=== PATIENT | female | born 1965 | race Caucasian/White ===

== ENCOUNTER 2018-05-01 10:41 | Observation (INO) ==
--- NOTE | 2018-05-01 11:27 | ED ---
HPI General Chief Complaint: Extremity Injury, Lower Stated Complaint: Blood Clot Time Seen by Provider: 05/01/18 10:58 Source: patient Mode of arrival: ambulatory Limitations: no limitations History of Present Illness HPI Narrative: 53-year-old female with a history of chronic neck pain presents to the emergency department for evaluation of left lower extremity pain and shortness of breath associated with exertion that started approximately 1 week ago. Patient went to her neurologist, Dr. Nieves, today who recommended she come in for evaluation. Patient says she woke up with this pain approximately 1 week ago that was worse with ambulation. Her pain is mild to moderate, aching, and constant. She has used ice and motrin without relief. Says over the last few weeks, she has been less mobile than normal because of her neck pain. Denies history of DVT/PE, injury, fractures, recent surgeries. Says she smokes 1 -2 small cigars daily. Says her mother had a blood clot which she eventually sucombed to. Denies chest pain, fever, chills, abdominal pain. MD complaint: leg injury Onset (ago): week(s) Type of Injury: unknown Place: home Severity: moderate Relieving factors: nothing Exacerbating factors: movement Other symptoms: SOB Treatments prior to arrival: cold therapy and NSAIDS Related Data Home Medications Medication Instructions Recorded Confirmed gabapentin 400 mg PO TID 05/01/18 05/01/18 Allergies Allergy/AdvReac Type Severity Reaction Status Date / Time nitrofurantoin AdvReac Severe NAUSEA Unverified 05/01/18 14:54 Review of Systems ROS: all other systems reviewed are negative PMFSH Social History Social History Smoking Status: Current every day smoker Tobacco Type: Cigarettes How Often Do You Have a Drink Containing Alcohol: 4 or more times a week Recent Travel in [facility] within the Last 8 Weeks: No Recent Out of Country Travel within the Last 8 Weeks: No Immunization History Tetanus Immunization: >5 Years Hx Influenza Vaccine This Season: No Exam Narrative Exam Narrative: GENERAL: Well-developed, well-nourished, very anxious, tearful SKIN: Focused skin assessment warm/dry. HEAD: Atraumatic. Normocephalic. EYES: Pupils equal and round. No scleral icterus. No injection or drainage. ENT: No nasal bleeding or discharge. Mucous membranes pink and moist. NECK: Trachea midline. No JVD. CARDIOVASCULAR: Regular rate and rhythm. No murmur appreciated. RESPIRATORY: No accessory muscle use. Clear to auscultation. Breath sounds equal bilaterally. MUSCULOSKELETAL: No obvious deformities. No clubbing. No cyanosis. Mild edema to the left calf when compared to the right, positive Homans. Neurovascular intact NEUROLOGICAL: Awake and alert. No obvious cranial nerve deficits. Motor grossly within normal limits. Normal speech. PSYCHIATRIC: Appropriate mood and affect; insight and judgment normal. Course Initial Documented Vital Signs Temperature 97.9 F 05/01/18 10:45 Pulse Rate 80 05/01/18 10:45 Respiratory Rate 20 05/01/18 10:45 Blood Pressure 149/22 H 05/01/18 10:45 Pulse Oximetry 98 05/01/18 10:45 Last Documented Vital Signs Temperature 97.9 F 05/01/18 10:45 Pulse Rate 80 05/01/18 10:45 Respiratory Rate 20 05/01/18 10:45 Blood Pressure 149/22 H 05/01/18 10:45 Pulse Oximetry 98 05/01/18 10:45 Medical Decision Making TESSA Attestation TESSA supervised visit: Yes Attestation: I was present with the advanced practitioner during the management of this patient. I discussed the case with the advanced practitioner and agree with the findings and plan as documented in their note except as noted below. 53yF presenting with left leg swelling and pain. Family history of mother with fatal PE. (+) recent sedentary lifestyle due to chronic neck pain. Well-appearing, NAD RRR Lungs clear Abdomen soft and non-tender (+) left calf tenderness and edema A&Ox3 A/P: 53yF with left leg swelling, found to have large acute LLE DVT which extends from proximal femoral vein to below the knee. She does not have reliable outpatient follow up as she does not have a primary care physician. I explained these results to the patient as well as plan to keep her in the hospital for anticoagulation and likely d/c tomorrow; she understands and agrees. Case discussed with Dr. Valdez. [facility] Narrative Medical decision making narrative: 53-year-old female presents emergency department for evaluation of left lower extremity pain and swelling started approximately 1 week ago. Says that she has been relatively immobile for the last 4 months secondary to chronic neck pain. Ultrasound demonstrates DVT left lower extremity. I had a very extensive discussion regarding treatment options for this patient. I believe that patient would benefit from inpatient therapy with bridge to Coumadin. CT pulmonary angiogram negative for PE. Morphine administered for pain. Ativan for extreme anxiety. Medical Screen Exam Complete: Yes Emergency Medical Condition: Yes Differential Diagnosis Differential Diagnosis: LLE DVT, PE, cellulitis Medical Records Medical records reviewed: Yes I reviewed the patient's medical records. Lab Data Lab results reviewed: Yes I reviewed the patient's lab results. Result diagrams: 05/01/18 11:20 05/01/18 11:20 Lab Results 05/01/18 05/01/18 05/01/18 Range/Units 11:20 11:20 11:20 WBC 10.4 (4.0-11.0) th/mm3 RBC 4.56 (4.00-5.30) mil/mm3 Hgb 14.3 (11.6-15.3) gm/dL Hct 41.9 (35.0-46.0) % MCV 91.9 (80.0-100.0) fL MCH 31.3 (27.0-34.0) pg MCHC 34.1 (32.0-36.0) % RDW 14.9 (11.6-17.2) % Plt Count 272 (150-450) th/mm3 MPV 7.2 (7.0-11.0) fL Neut % (Auto) 70.1 H (16.0-70.0) % Lymph % (Auto) 20.2 (9.0-44.0) % Woodford % (Auto) 7.5 (0.0-8.0) % Eos % (Auto) 1.6 (0.0-4.0) % Baso % (Auto) 0.6 (0.0-2.0) % Neut # (Auto) 7.3 (1.8-7.7) th/mm3 Lymph # (Auto) 2.1 (1.0-4.8) th/mm3 Woodford # (Auto) 0.8 (0.0-0.9) th/mm3 Eos # (Auto) 0.2 (0.0-0.4) th/mm3 Baso # (Auto) 0.1 (0.0-0.2) th/mm3 WBC Differential . Differential Comment Auto diff final PT 9.8 (9.8-11.6) sec INR 1.0 Ratio APTT 22.6 L (24.3-30.1) sec Sodium 141 (136-145) meq/L Potassium 4.3 (3.5-5.1) meq/L Chloride 106 (98-107) meq/L Carbon Dioxide 29.6 (21.0-32.0) meq/L Anion Gap 5 (5-15) meq/L BUN 10 (7-18) mg/dL Creatinine 0.89 (0.50-1.00) mg/dL Estimated GFR 66 L (>89) mL/min Random Glucose 58 L (74-106) mg/dL Calcium 9.1 (8.5-10.1) mg/dL Total Creatine Kinase (26-192) U/L Troponin I (0.02-0.05) ng/mL 05/01/18 Range/Units 11:20 WBC (4.0-11.0) th/mm3 RBC (4.00-5.30) mil/mm3 Hgb (11.6-15.3) gm/dL Hct (35.0-46.0) % MCV (80.0-100.0) fL MCH (27.0-34.0) pg MCHC (32.0-36.0) % RDW (11.6-17.2) % Plt Count (150-450) th/mm3 MPV (7.0-11.0) fL Neut % (Auto) (16.0-70.0) % Lymph % (Auto) (9.0-44.0) % Woodford % (Auto) (0.0-8.0) % Eos % (Auto) (0.0-4.0) % Baso % (Auto) (0.0-2.0) % Neut # (Auto) (1.8-7.7) th/mm3 Lymph # (Auto) (1.0-4.8) th/mm3 Woodford # (Auto) (0.0-0.9) th/mm3 Eos # (Auto) (0.0-0.4) th/mm3 Baso # (Auto) (0.0-0.2) th/mm3 WBC Differential Differential Comment PT (9.8-11.6) sec INR Ratio APTT (24.3-30.1) sec Sodium (136-145) meq/L Potassium (3.5-5.1) meq/L Chloride (98-107) meq/L Carbon Dioxide (21.0-32.0) meq/L Anion Gap (5-15) meq/L BUN (7-18) mg/dL Creatinine (0.50-1.00) mg/dL Estimated GFR (>89) mL/min Random Glucose (74-106) mg/dL Calcium (8.5-10.1) mg/dL Total Creatine Kinase 52 (26-192) U/L Troponin I Less than 0.02 L (0.02-0.05) ng/mL Imaging Data Radiologist's impression: Chest CTA 05/01/18 11:13 CONCLUSION: 1. No evidence of pulmonary embolism. 2. No acute pulmonary infiltrates. Venous Doppler Study 05/01/18 11:13 CONCLUSION: 1. DVT extending from the central femoral vein to the calf. 2. Common femoral and iliac veins are patent. ECG Data Attestation: I personally reviewed and interpreted this ECG as follows: Interpretation: Rate: 57 BPM Rhythm: Sinus Roann: Normal Intervals: Normal intervals, no blocks, QTc 436 ms Q waves: I, aVL T waves: Inverted in III, aVF, V3 ST segments: No elevations or depressions Impression: Non-specific EKG, no changes as compared to EKG from 02/15/2016. Discharge Plan Discharge Disposition Patient Disposition: 30 Still Patient Discharge Condition Condition: Stable Discharge Details Diagnosis: DVT (deep venous thrombosis) Physicians Team ED Provider: Madelyn Bennett ED Midlevel Provider: Rebeca Guzman Primary Care Provider: Primary Care Dior Choudhury Attending Provider: Alberto Valdez Other Providers: Ousmane López Status ED Status: Admitted Observation Patient
[2018-05-01 11:40] LABS: Baso # (Auto) 0.1 th/mm3 (0.0-0.2); Baso % (Auto) 0.6 % (0.0-2.0); Eos # (Auto) 0.2 th/mm3 (0.0-0.4); Eos % (Auto) 1.6 % (0.0-4.0); Hematocrit 41.9 % (35.0-46.0); Hemoglobin 14.3 gm/dL (11.6-15.3); Lymph # (Auto) 2.1 th/mm3 (1.0-4.8); Lymph % (Auto) 20.2 % (9.0-44.0); Mean Corpuscular HGB Conc 34.1 % (32.0-36.0); Mean Corpuscular Hemoglobin 31.3 pg (27.0-34.0); Mean Corpuscular Volume 91.9 fL (80.0-100.0); Mean Platelet Volume 7.2 fL (7.0-11.0); Mono # (Auto) 0.8 th/mm3 (0.0-0.9); Mono % (Auto) 7.5 % (0.0-8.0); Neut # (Auto) 7.3 th/mm3 (1.8-7.7); Neut % (Auto) 70.1 % (16.0-70.0); Platelet Count 272 th/mm3 (150-450); Red Blood Count 4.56 mil/mm3 (4.00-5.30); Red Cell Distribution Width 14.9 % (11.6-17.2); White Blood Count 10.4 th/mm3 (4.0-11.0)
[2018-05-01 11:49] LABS: Activated Partial Thrombo Time 22.6 sec (24.3-30.1); Prothrombin Time 9.8 sec (9.8-11.6)
[2018-05-01 12:07] LABS: Calcium 9.1 mg/dL (8.5-10.1); Carbon Dioxide 29.6 meq/L (21.0-32.0); Potassium 4.3 meq/L (3.5-5.1)
[2018-05-01 12:13] LABS: Creatine Kinase 52 U/L (26-192)
--- NOTE | 2018-05-01 12:35 | US ---
EXAM DATE: 05/01/2018 12:06 PM EDT AGE/SEX: 53 years / Female INDICATIONS: Left leg pain. CLINICAL DATA: This is the patient's initial encounter. Patient reports that signs and symptoms have been present for 1 week and indicates a pain score of 4/10. MEDICAL/SURGICAL HISTORY: . Left leg pain. None. COMPARISON: No prior exams available for comparison. TECHNIQUE: Venous ultrasound of both lower extremities was performed from the inguinal ligament to t he proximal calf. Real-time, color Doppler and spectral tracing, compression and augmentation techni ques were used. FINDINGS: Occlusive thrombus extending from the central femoral vein to the posterior tibial vein. The common femoral and iliac veins are patent. CONCLUSION: 1. DVT extending from the central femoral vein to the calf. 2. Common femoral and iliac veins are patent. Electronically signed by: Roland Hansen MD 05/01/2018 12:33 PM EDT
--- NOTE | 2018-05-01 14:00 | CT ---
EXAM DATE: 05/01/2018 1:40 PM EDT AGE/SEX: 53 years / Female INDICATIONS: Shortness of breath. Left leg pain and swelling, positive for DVT. CLINICAL DATA: This is the patient's initial encounter. Patient reports that signs and symptoms have been present for 1 week and indicates a pain score of 2/10. MEDICAL/SURGICAL HISTORY: None. None. RADIATION DOSE: 11.91 CTDI (mGy) COMPARISON: No prior exams available for comparison. TECHNIQUE: Volumetric scanning was performed using a multi-row detector CT scanner during bolus infu trent of 74 ml Omnipaque 350 (iohexol) nonionic water-soluble contrast as a single exam dose. The cielo a was post processed with a variety of visualization algorithms including full volume maximum intensi ty projection and sliding thin slab reformation. Using automated exposure control and adjustment of t he mA and/or kV according to patient size, radiation dose was kept as low as reasonably achievable to obtain optimal diagnostic quality images. DICOM format image data is available electronically for r eview and comparison. FINDINGS: Pulmonary Arteries: No filling defects are seen in the pulmonary arteries out to the subsegmental ve ssels. The left and right pulmonary arteries are normal in diameter. Lung: No infiltrates seen. Effusion: None. Mediastinum: No evidence of mediastinal or hilar adenopathy. Other: The axilla is unremarkable. There are some old healed right-sided rib fractures. CONCLUSION: 1. No evidence of pulmonary embolism. 2. No acute pulmonary infiltrates. Electronically signed by: Herminio Jose MD 05/01/2018 1:59 PM EDT
[2018-05-01] MEDS ORDERED: LORazepam 0.5 MG Tablet PO ONE (14:04)
[2018-05-01] MEDS ORDERED: Morphine Sulfate Inj 2 MG/ML Vial IM ONE (14:23)
[2018-05-01] MEDS ORDERED: Enoxaparin Inj 80 MG/0.8 ML Syringe SQ ONE (14:57)
[2018-05-01] MEDS ORDERED: Acetaminophen 325 MG Tablet PO PRN (15:01)
[2018-05-01] MEDS ORDERED: Zolpidem Tartrate 5 MG Tablet PO PRN (15:01)
[2018-05-01] MEDS ORDERED: Bisacodyl 10 MG Supp RECTAL PRN (15:01)
[2018-05-01] MEDS ORDERED: oxyCODONE/Acetaminophen 10/325 Tablet PO PRN (15:03)
[2018-05-01] MEDS ORDERED: Morphine Inj 4 MG/ML Vial IV.PUSH PRN ×2 (15:03)
[2018-05-01] MEDS ORDERED: Naloxone Inj 0.4 MG/ML Vial IV.PUSH PRN (15:03)
--- NOTE | 2018-05-01 16:39 | ECG ---
Date Performed: 05/01/2018 Time Performed: 12:40:23 PTAGE: 53 years EKG: SINUS BRADYCARDIA Since previous tracing, no significant change noted BORDERLINE ECG PREVIOUS TRACING : 02/15/2016 13.08.02 DOCTOR: Al Shen Interpretating Date/Time 05/01/2018 16:38:10
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
[2018-05-01 17:48] LABS: D-Dimer 3.73 mg/L FEU (0.00-0.50)
[2018-05-01] MEDS: Gabapentin 400 MG Capsule PO SCH (18:08)
[2018-05-01] MEDS: Methocarbamol 500 MG Tablet PO SCH ×2 (18:08→21:45)
--- NOTE | 2018-05-01 18:22 | P.CON ---
History of Present Illness Service: Hematology Consult date: 05/01/18 Requesting Physician: Alberto Valdez Reason for Consult: Left lower extremity deep venous thrombosis. Primary Care Provider: No Primary Care Physician Chief Complaint: Pain and swelling involving the left lower extremity for the past 1 week. History of Present Illness: Ms. Yu is a very pleasant 53-year-old female, she reports being in her usual excellent state of health up until about 2 months ago, she reports having noted a "knot in her left calf" just below the back of the knee about 2 and half months ago, this is associated with a "tightness "of her left leg and calf. The symptoms lasted for about a week and then resolved spontaneously. She reports having developed similar tightness and pain in her left calf extending to the lower part of her left thigh 1 week ago. She reports this time the symptoms were different in that she had swelling of the leg and progressive pain. She also noticed the veins on the surface of her calf skin to be more prominent. 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 In the emergency department she underwent ultrasound Doppler studies of the left lower extremity, the ultrasound Doppler performed on 05/01/2018 revealed a deep venous thrombosis extending from the central femoral vein to the calf, the thrombus was described as occlusive and extended to the posterior tibial vein. A CT angiogram of the thorax was also performed on 05/01/2018 and this revealed no evidence of pulmonary emboli. The patient has been initiated on therapeutic anticoagulation with Lovenox and an extensive prothrombotic workup has been ordered by the hospitalist physician. Other than traveling to [place] and [facility] twice over the past 2 months as a part of her relocation and having a generally sedentary lifestyle the patient denies having had any major provoking factors. She denies having ever previously been diagnosed with lower extremity deep venous thromboses, pulmonary emboli or arterial thromboses. She tells me her maternal grandmother suffered from lower extremity deep venous thromboses and in fact from massive pulmonary emboli at an advanced age, her maternal grandmother was however bedbound and morbidly obese. The patient tells me an autopsy was performed which revealed massive pulmonary emboli. Review of Systems Constitutional: Reports weight gain, Denies anorexia, Denies body ache(s), Denies chills, Denies night sweats, Denies weakness Eyes: Denies blurry vision, Denies change in vision, Denies double vision Ears, Nose, Mouth, and Throat: Denies abnormal hearing, Denies change in voice, Denies difficulty swallowing, Denies sore throat, Denies throat swelling Cardiovascular: Denies chest pain, Denies fainting, Denies fast heart rate, Denies shortness of breath when lying down, Denies shortness of breath causing sudden awakening Respiratory: Denies change in phlegm color, Denies chest congestion, Denies cough, Denies coughing up blood, Denies shortness of breath with activity Gastrointestinal: Reports heartburn, Denies abdominal pain, Denies black, tarry stools, Denies bloating, Denies coffee ground vomit, Denies vomiting, Denies vomiting blood Genitourinary: Denies abnormal periods Musculoskeletal: Denies abnormal walking, Denies back pain, Denies body aches Skin/Breast: Denies bleeding lesions, Denies lesions, Denies yellowing of the skin Neurologic: Denies abnormal hearing, Denies abnormal walking, Denies dizziness, Denies fainting, Denies frequent falls, Denies headache(s) Psychiatric: Reports anxiety, Reports depression, Denies abnormal sleep pattern , Denies change in appetite Endocrine: Denies cold intolerance Hematologic/Lymphatic: Denies easy bleeding Allergic/Immunologic: Denies GI upset with certain foods PMFSH - History History Provided By: Patient - Medical History Medical History: Medical History (Last Updated 05/01/18 @ 18:11 by Ousmane López MD) Cervical pain Peptic ulcer disease with hemorrhage - Surgical History Surgical History: Surgical History (Last Updated 05/01/18 @ 16:42 by Alberto Valdez DO) H/O breast augmentation Hx of tubal ligation - Family History Family History: Family History (Last Updated 05/01/18 @ 18:13 by Ousmane López MD) Aunt Lung cancer Aunt Head and neck cancer Aunt Lymphoma Grandparent Pulmonary emboli Grandparent Lower extremity deep venous thrombosis - Tobacco History Second Hand Smoke Exposure: Yes Tobacco Use In Past 30 Days: Yes Smoking Status: Current every day smoker Tobacco Type: Cigarettes, Cigars - Alcohol History How Often Do You Have a Drink Containing Alcohol: Monthly or less - Substance Use History Substance History: Active Abuse - Substance Use Type Marijuana Status: Active Route Used: Inhalation Reason for Use: Sleep - Travel History Recent Travel in the [place] Within the Last 8 Weeks: No Recent Travel Out of the Country Within the Last 8 Weeks: No - Immunization History Tetanus Immunization: >5 Years Hx Influenza Vaccine This Season: No Medications and Allergies Active Medications: Active Medications Acetaminophen (Tylenol) 650 mg PO Q4H PRN PRN Reason: Temp > 100.4 Al Hydroxide/Mg Hydroxide (Milk Of Magnesia Liq) 30 ml PO Q12H PRN PRN Reason: Mild Constipation Bisacodyl (Dulcolax Supp) 10 mg RECTAL DAILY PRN PRN Reason: SEVERE CONSITIPATION Enoxaparin Sodium (Lovenox Inj) 60 mg SQ Q12HR PHIL Famotidine (Pepcid) 10 mg PO BID PHIL Gabapentin (Neurontin) 400 mg PO TID PHIL Lactulose (Lactulose Liq) 30 ml PO DAILY PRN PRN Reason: SEVERE CONSITIPATION Methocarbamol (Robaxin) 1,000 mg PO Q8HR PHIL Morphine Sulfate (Morphine Inj) 4 mg IV.PUSH Q3H PRN PRN Reason: PAIN 6-10;IF UNABLE TO TAKE PO Morphine Sulfate (Morphine Inj) 4 mg IV.PUSH Q3H PRN PRN Reason: BREAKTHROUGH PAIN Morphine Sulfate (Morphine Inj) 2 mg IV.PUSH Q3H PRN PRN Reason: PAIN 3-5; IF UABLE TO TAKE PO Naloxone HCl (Narcan Inj) 0.4 mg IV.PUSH UNSCH PRN PRN Reason: SEE LABEL COMMENTS Ondansetron HCl (Zofran Inj) 4 mg IV.PUSH Q6H PRN PRN Reason: NAUSEA OR VOMITING Oxycodone/Acetaminophen (Percocet 10/325 Mg) 1 tab PO Q6H PRN PRN Reason: PAIN SCALE 6 TO 10 Last Admin: 05/01/18 17:13 Dose: 1 tab Oxycodone/Acetaminophen (Percocet 5/325 Mg) 1 tab PO Q6H PRN PRN Reason: PAIN SCALE 3 TO 5 Senna/Docusate Sodium (Uzma-Colace) 1 tab PO BID PHIL Sennosides (Senokot) 17.2 mg PO Q12H PRN PRN Reason: Moderate Constipation Zolpidem Tartrate (Ambien) 5 mg PO HS PRN PRN Reason: INSOMNIA Allergies Allergy/AdvReac Type Severity Reaction Status Date / Time nitrofurantoin AdvReac Severe NAUSEA Unverified 05/01/18 14:54 Home Medications Medication Instructions Recorded Confirmed Type gabapentin 400 mg PO TID 05/01/18 05/01/18 History Physical Exam Vital signs: Vital Signs 05/01/18 10:45 05/01/18 16:00 Temperature 97.9 F 98.1 F Pulse Rate 80 64 Respiratory Rate 20 18 Blood Pressure 149/22 H 139/70 Pulse Oximetry 98 98 Intake & Output 04/30/18 05/01/18 05/01/18 18:59 06:59 18:59 Weight 65.771 kg Other: Date of Last Bowel Movement 04/30/18 - Constitutional no acute distress - Routine HEENT Exam Head: Present: normocephalic. Absent: atraumatic, cushingoid faces Eye: Present: EOMI, PERRL, normal accommodation. Absent: conjunctival icterus, scleral injection ENT: Present: mucous membranes moist - Routine Neck Exam Present: supple, full ROM, JVD. Absent: carotid bruit, lymphadenopathy - Routine Respiratory Exam Present: CTA bilaterally. Absent: accessory muscle use, patient mechanically ventilated, rales, respiratory distress, rhonchi, stridor, wheezes, crackles - Routine Cardiovascular Exam Present: RRR, S1, S2. Absent: murmur, gallop, rubs, S3, S4 - Routine Abdominal Exam Present: soft, normoactive bowel sounds. Absent: tenderness, distended, rebound , guarding, firm, organomegaly, mass, hernia - Routine Extremities Exam Present: calf tenderness (On the left side). Absent: cyanosis, clubbing, edema , extremity cold to touch - Routine Skin Exam Present: intact. Absent: cyanosis, erythema, dry, pallor, wounds, rash, alopecia - Routine Neurological Exam Present: alert, oriented X3, CN II-XII intact. Absent: sensory deficit, motor deficit - Detailed Neurological Exam: Coma Scale Eye Opening: Spontaneous - Routine Psychiatric Exam Present: normal affect Assessment and Plan - Plan Code Status: Ms. Yu is a very pleasant 53-year-old female who presents the hospital with a one-week history of pain and swelling of her left leg mostly centered in the lower posterior part of her left thigh and her left calf. Ultrasound Doppler studies reveal an occlusive thrombus extending from the central femoral vein to the posterior tibial vein. CT angiogram of the thorax reveals no evidence of pulmonary emboli. She has no respiratory symptoms to suggest pulmonary emboli. No specific provoking factors are identified other than the patient having had recent road travel to and from the [facility] over the past 2 months. She reports this is her first lifetime episode of a any form of thrombosis i.e. venous or arterial thrombosis. She does have a family history of deep venous thromboses and pulmonary emboli; her maternal grandmother developed VT E at an advanced age, she was bedridden and was morbidly obese at the time. A prothrombotic workup has been initiated, the patient has been appropriately initiated on therapeutic anticoagulation with Lovenox at a dose of 1 mg/kg every 12 hours. Should be noted that the patient has a history of peptic ulcer disease, she reports having had significant GI bleeding several years ago, this occurred in the setting of her having an inordinate amount of stress (related to her son being deployed overseas with the ) and her also having been a moderately heavy alcohol drinker. She denies having had any recurrences of GI bleeding ever since. Recommendations: 1. Acute and occlusive left lower tremor deep venous thrombosis: Continue therapeutic anticoagulation with Lovenox at a dose of 1 mg/kg every 12 hours. It would be reasonable to transition her to an oral agent such as either warfarin or 1 of the oral factor Xa inhibitor such as Xarelto or Eliquis. If transition to warfarin is desired I would recommend anticoagulation with single agent Lovenox for at least 48 hours before introducing warfarin. If transitioned to Eliquis or Xarelto is required the transition can be much simpler i.e. discontinue Lovenox and initiate the oral factor X inhibitor after 10 hours of the most recent Lovenox dose. I would like to add that there is no contraindication to discharging her home on therapeutic dose Lovenox which the patient can self administer. The results of her prothrombotic workup will not be available for the upcoming 7 -10 days. I would like to see the patient in outpatient follow-up in the upcoming 2-3 weeks to discuss the results of the prothrombotic workup. The hematology service to follow along with you. Should the patient's symptoms of lower extremity swelling and pain resolved she may be discharged home. Outpatient follow-up will also be arranged.
[2018-05-01] MEDS: Famotidine 20 MG Tablet PO SCH (21:44)
[2018-05-01] MEDS: Enoxaparin Inj 60 MG/0.6 ML Syringe SQ SCH (21:46)
[2018-05-01] MEDS: Senna/Docusate Sodium 8.6/50 MG Tablet PO SCH (21:46)
[2018-05-01] MEDS: Morphine Sulfate Inj 2 MG/ML Vial IV.PUSH PRN (22:12)
[2018-05-01 22:25] LABS: Hemoglobin A1c 5.5 % (4.3-6.0)
[2018-05-01 23:52] VITALS: RESP 16
[2018-05-02] MEDS: Morphine Sulfate Inj 2 MG/ML Vial IV.PUSH PRN (01:12)
[2018-05-02 05:33] LABS: Baso # (Auto) 0.1 th/mm3 (0.0-0.2); Baso % (Auto) 0.8 % (0.0-2.0); Eos # (Auto) 0.2 th/mm3 (0.0-0.4); Eos % (Auto) 2.1 % (0.0-4.0); Hematocrit 39.8 % (35.0-46.0); Hemoglobin 13.5 gm/dL (11.6-15.3); Lymph # (Auto) 2.7 th/mm3 (1.0-4.8); Lymph % (Auto) 27.8 % (9.0-44.0); Mean Corpuscular HGB Conc 33.8 % (32.0-36.0); Mean Corpuscular Hemoglobin 31.1 pg (27.0-34.0); Mean Platelet Volume 7.6 fL (7.0-11.0); Mono # (Auto) 0.7 th/mm3 (0.0-0.9); Mono % (Auto) 7.5 % (0.0-8.0); Neut # (Auto) 5.9 th/mm3 (1.8-7.7); Neut % (Auto) 61.8 % (16.0-70.0); Platelet Count 279 th/mm3 (150-450); Red Blood Count 4.33 mil/mm3 (4.00-5.30); Red Cell Distribution Width 15.1 % (11.6-17.2); White Blood Count 9.6 th/mm3 (4.0-11.0)
[2018-05-02 06:02] LABS: Aspartate Aminotransferase 21 U/L (15-37); Chloride 104 meq/L (98-107); Cholesterol 187 mg/dL (120-200); Glomerular Filtration Rate 72 mL/min (>89); Potassium 3.9 meq/L (3.5-5.1); Sodium 140 meq/L (136-145); Triglycerides 78 mg/dL (42-150)
[2018-05-02 06:06] LABS: Alanine Aminotransferase 18 U/L (10-53); Albumin 3.8 g/dL (3.4-5.0); Alkaline Phosphatase 88 U/L (45-117); Anion Gap 7 meq/L (5-15); Blood Urea Nitrogen 9 mg/dL (7-18); Calcium 9.5 mg/dL (8.5-10.1); Carbon Dioxide 28.6 meq/L (21.0-32.0); Chol/HDL Ratio 2.44 Ratio; Glucose,Random 78 mg/dL (74-106); HDL Cholesterol 76.4 mg/dL (40.0-60.0); LDL Cholesterol,Calculated 95 mg/dL (0-99); Magnesium 2.6 mg/dL (1.5-2.5); Phosphorus 3.6 mg/dL (2.5-4.9); Total Protein 8.7 g/dL (6.4-8.2)
[2018-05-02] MEDS: Methocarbamol 500 MG Tablet PO SCH (07:15)
[2018-05-02 07:32] VITALS: BP 130/86; PULSE 67; TEMP 97.8; O2SAT 98
[2018-05-02] MEDS: Senna/Docusate Sodium 8.6/50 MG Tablet PO SCH (08:45)
[2018-05-02] MEDS: Enoxaparin Inj 60 MG/0.6 ML Syringe SQ SCH (08:45)
[2018-05-02] MEDS: Gabapentin 400 MG Capsule PO SCH (08:46)
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
[2018-05-02] MEDS: Famotidine 20 MG Tablet PO SCH (10:57)
[2018-05-05 03:51] LABS: Homocysteine (Cardiovascular) 10.9 umol/L (<10.4)
[2018-05-06 15:51] LABS: Dil Russell Viper Venom Conf ( ND (NEGATIVE); Dil Russell Viper Venom Time M ND (CORRECTED); Lupus Anticoagulant PTT Screen 38 seconds (< OR = 40); Thrombin Time 17 sec (13-19)
[2018-05-07 16:08] LABS: Factor V Leiden Mutation Negative (Negative); Protein C Antigen 102 % (70-150)
== END 2018-05-02 11:19 | disposition home or self-care (01) ==
LOC: NEDA 10:41 → NEPD 10:41 → NEDA 16:12 → NEPFCDU 16:20
PROVIDERS: ADMIT Hospitalist; ATTEND Hospitalist